=== PATIENT | female | born 1980 | race Caucasian/White ===

== ENCOUNTER 2020-03-12 15:27 | Outpatient (CLI) | payer BC, SELFPAY ==
--- NOTE | ~2020-03-12 | XR_ITS ---
XR lumbar spine min 4V DATE: 03/12/2020 16:25 INDICATION: Lower back pain for 10 years TECHNIQUE: AP, lateral, bilateral oblique views, coned lateral lumbosacral view COMPARISON: 12/21/2014 MRI lumbar spine FINDINGS: There is preservation of disc spaces at L1-2 and L2-3. There is mild loss of disc space height and mild degenerative spurring at L3-4. There is moderate loss of interspace height and mild spurring and mild retrolisthesis at L4-5. There is moderate loss of interspace height at L5-S1. No fracture or bone destruction is evident. No spondylolysis. The lumbar pedicles are intact. The sac roiliac joints appear normal. IMPRESSION: Mild to moderate degenerative disc disease at L3-4 through L5-S1; mild retrolisthesis at L4-5 Reviewed, dictated and finalized at location A. IMPRESSION: Mild to moderate degenerative disc disease at L3-4 through L5-S1; m ild retrolisthesis at L4-5
--- NOTE | ~2020-03-12 | XR_ITS ---
XR hip BI 2V w AP pelvis DATE: 03/12/2020 16:26 INDICATION: Bilateral hip pain, right greater than left TECHNIQUE: AP pelvis. AP and lateral views of each hip COMPARISON: None FINDINGS: No pelvic fracture or bone destruction is evident. The pubic symphysis and sacroiliac joint s are intact. No fracture or dislocation, avascular necrosis or bone destruction of either hip is evident. Hip join t spaces are symmetric and well preserved. Moderate degenerative disc disease is suggested at L4-5 and L5-S1. IMPRESSION: No significant abnormality of the pelvis or hips Reviewed, dictated and finalized at location A.
--- NOTE | ~2020-03-12 | XR_ITS ---
EXAMINATION: XR hand BI arthritis min 3V DATE: 03/12/2020 16:24 INDICATION: Unspecified osteoarthritis. TECHNIQUE: 4 views of right hand and 4 views of left hand on a total of 7 radiographs were obtained. COMPARISON: Right hand second digit radiographs 09/01/2008 FINDINGS: RIGHT HAND: There is mild flexion of fifth distal interphalangeal joint. There may be an old healed f racture deformity of dorsal base of fifth distal phalanx. No acute fracture. There is mild osteoarthr itis of triscaphe joint, first carpometacarpal joint, first, fourth, and fifth metacarpophalangeal lindsey ints, first interphalangeal joint, and third distal interphalangeal joint. LEFT HAND: Bone alignment is normal. No fracture. There is mild osteoarthritis of first metacarpophal angeal joint and second and third distal interphalangeal joints. IMPRESSION: 1. Mild polyarticular osteoarthritis. Reviewed, dictated and finalized at location B.
[2020-03-12 16:50] LABS: Basophils Absolute Auto 0.1 K/mm3 (0.0-0.1); Basophils Percent Auto 0.7 % (0.2-1.2); Eosinophils Absolute Auto 0.2 K/mm3 (0-0.3); Eosinophils Percent Auto 2.6 % (0-4.4); Hematocrit 37.8 % (37.0-47.0); Hemoglobin 12.3 g/dL (12.0-15.0); Immature Granulocyte Absolute 0.02 K/mm3 (0.00-0.031); Immature Granulocyte Percent A 0.3 % (0-0.5); Lymphocytes Absolute Auto 3.08 K/mm3 (0.9-3.2); Lymphocytes Percent Auto 42.1 % (18.3-44.2); Mean Corpuscular HGB Conc 32.5 g/dl (32-36); Mean Corpuscular Volume 86.1 fl (80-100); Mean Platelet Volume 9.6 fl (7.4-10.4); Monocytes Absolute Auto 0.4 K/mm3 (0.1-0.6); Monocytes Percent Auto 5.3 % (2.6-8.5); Neutrophils Absolute Auto 3.6 K/mm3 (1.3-6.7); Platelet Count Result 292 k/mm3 (150-375); Red Blood Count 4.39 M/mm3 (4.2-5.4); Red Cell Distribution Width 13.2 % (11.5-14.5); White Blood Count 7.3 K/mm3 (4.5-10.0)
[2020-03-12 17:11] LABS: Alanine Aminotransferase 41 U/L (4-35); Albumin Level 4.2 g/dL (3.5-5.1); Alkaline Phosphatase 58 U/L (38-126); Anion Gap 9 mmol/L (8-16); Aspartate Amino Transferase 38 U/L (14-36); Bilirubin,Total 0.3 mg/dL (0.2-1.3); Blood Urea Nitrogen 12 mg/dL (7-17); CRP 0.8 mg/dL (<1.0); Calcium 8.8 mg/dL (8.4-10.2); Carbon Dioxide 27 mmol/L (22-30); Chloride 103 mmol/L (98-107); Estimated Glomerular Filt Rate > 60; Glucose 86 mg/dL (65-105); Sodium 139 mmol/L (137-145); Uric Acid 3.6 mg/dL (2.5-7.5)
[2020-03-12 17:26] LABS: Erythrocyte Sedimentation Rate 17 mm/hr (0-20)
[2020-03-12 18:11] LABS: Hepatitis B Surface Antigen Negative (Negative)
[2020-03-12 18:28] LABS: Hepatitis B Surface Anti Res Negative; Hepatitis C Virus Antibody Negative (Negative)
[2020-03-16 16:42] LABS: Hepatitis B Core Ab Total Nonreactive (Nonreactive)
[2020-03-17 10:53] LABS: Anti Cyclic Citrullinated Pept <16 Units (<20)
[2020-03-17 14:21] LABS: Angiotensin Converting Enzyme 24 U/L (9-67)
[2020-03-18 20:10] LABS: ANCA Screen Negative (Negative); Myeloperoxidase Ab <1.0 AI (<1.0); Proteinase-3 Ab <1.0 AI (<1.0); S cerevisiae Ab (IgA) 6.1 U (<=20.0); S cerevisiae Ab (IgG) 9.8 U (<=20.0)
== END 2020-03-12 15:28 | disposition home or self-care (01) ==
PROVIDERS: PCP Family Medicine; Visit Provider Internal Medicine
DX: M19.041 Primary osteoarthritis, right hand (principal); M19.042 Primary osteoarthritis, left hand; Z11.59 Encounter for screening for other viral diseases; M51.36 Other intervertebral disc degeneration, lumbar region
CPT/HCPCS: 36415; 72110; 73130; 73521; 80053; 82164; 84550; 85025; 85652; 86021; 86140; 86200; 86671; 86704; 86706; 86803; 87340

== ENCOUNTER 2020-07-31 15:31 | Outpatient (CLI) | payer BC, SELFPAY ==
--- NOTE | ~2020-07-31 | MR_ITS ---
EXAMINATION: MR sacroiliac jts wo/w con DATE: 07/31/2020 17:32 INDICATION: Unspecified osteoarthritis, unspecified site. TECHNIQUE: Magnetic resonance imaging (MRI) of the sacroiliac joints was performed without and with 2 0 mL MultiHance intravenous contrast. Sequences included sagittal PD-weighted FS FSE, axial oblique T 1-weighted FSE, T1-weighted FS FSE, and T2-weighted FS FSE, coronal oblique T1-weighted FSE, T2-weigh singh FSE, and T2-weighted FS FSE, and postcontrast sagittal, axial oblique, coronal oblique T1-weighte d FS FSE. COMPARISON: Pelvis radiograph 03/12/2020 FINDINGS: Bone alignment is normal. No fracture. There is moderate lumbar spondylosis. There is moder ate osteoarthritis of the sacroiliac joints. IMPRESSION: 1. Moderate osteoarthritis of the sacroiliac joints. No evidence of inflammatory arthropathy. Reviewed, dictated and finalized at location A. [employer] IMPRESSION: 1. Moderate osteoarthritis of the sacroiliac joints. No evidence of inflammator y arthropathy.
[2020-07-31 16:23] LABS: Alanine Aminotransferase 21 U/L (4-35); Albumin Level 4.3 g/dL (3.5-5.1); Alkaline Phosphatase 69 U/L (38-126); Anion Gap 9 mmol/L (8-16); Aspartate Amino Transferase 24 U/L (14-36); Bilirubin,Total 0.2 mg/dL (0.2-1.3); Blood Urea Nitrogen 11 mg/dL (7-17); Calcium 8.8 mg/dL (8.4-10.2); Carbon Dioxide 27 mmol/L (22-30); Chloride 105 mmol/L (98-107); Estimated Glomerular Filt Rate > 60; Glucose 89 mg/dL (65-105); Potassium 4.1 mmol/L (3.4-5.0); Sodium 141 mmol/L (137-145)
[2020-07-31 16:41] LABS: Estimated Glomerular Filt Rate > 60
== END 2020-07-31 15:32 | disposition home or self-care (01) ==
LOC: ANHIMG 15:33
PROVIDERS: PCP Family Medicine; Visit Provider Internal Medicine
DX: M19.90 Unspecified osteoarthritis, unspecified site (principal)
CPT/HCPCS: 36415; 72197; 80053; A9577

== ENCOUNTER 2022-03-20 18:36 | Emergency (ER) | payer BC, SELFPAY ==
[2022-03-20 18:44] VITALS: BP 126/101; PULSE 76; RESP 16; TEMP 36.6; O2SAT 100
--- NOTE | 2022-03-20 18:52 | ED.FEMALEGU ---
HPI - Female Genitourinary General Chief complaint: Urogenital-Female Stated complaint: UTI Time Seen by Provider: 03/20/22 19:13 Source: patient and RN notes reviewed Mode of arrival: ambulatory Limitations: no limitations History of Present Illness HPI Narrative: 41-year-old female presents concern for 2-week history of strong smelling urine, dark-colored urine and suprapubic pressure and low back pain. She reports history of urinary tract infections and urine problems. She reports she tried increasing her water without relief. She denies fever, body aches, chills. Denies abdominal pain or vomiting. MD elicited complaint: UTI Related Data Home Medications Medication Instructions Recorded Confirmed bupropion HCl 150 mg tablet,12 hr 150 mg PO BID 08/07/20 03/20/22 sustained-release (Wellbutrin SR) clonazepam 0.5 mg tablet 0.5 mg PO BID 08/07/20 03/20/22 Allergies Allergy/AdvReac Type Severity Reaction Status Date / Time amoxicillin Allergy Unknown Unknown Verified 03/20/22 19:05 Penicillins Allergy Unknown [place] Verified 03/20/22 19:05 REACTION-CHILDHOOD Review of Systems Review of Systems: CONSTITUTIONAL: Denies malaise, chills, sweats, or fever. CARDIOVASCULAR: Denies chest pain, palpitations, or edema. RESPIRATORY: Denies cough or dyspnea. GASTROINTESTINAL: Denies abdominal pain, nausea, vomiting, diarrhea GENITOURINARY: Reports dysuria, strong smelling urine, suprapubic pressure. Denies frequency, urgency, flank pain or hematuria. SKIN: Denies rash or itching. MUSCULOSKELETAL: Denies back pain or myalgia. All systems reviewed & are unremarkable except as noted in HPI and below PMFSH Past Medical History Medical History Bilateral hand pain Inflammatory arthritis (~09/2019) Kidney stone Surgical History Surgical History H/O lithotripsy Hx of tubal ligation Family History Family History Mother Diabetes mellitus Heart disease Hypertension Arthritis Social History Social History Smoking status: Never smoker Second hand tobacco smoke exposure: No Alcohol intake: current Substance use: never Gender identity (if verbalized by the patient): Female Comments At time of signature, agree with nursing past medical, surgical, social and family history. There is no relevant family history pertinent to the presenting complaint Exam Narrative: GENERAL: Well-appearing, well-nourished, and in no acute distress. HEAD: Normocephalic. EYES: PERRLA, conjunctivae clear. NECK: Supple. No lymphadenopathy CHEST: Clear to auscultation. No respiratory distress. HEART: Regular rate and rhythm. ABDOMEN: Soft, nontender upon palpation, nondistended, normal active bowel sounds, no palpable or pulsatile masses, no guarding. No CVA tenderness SKIN: Warm, dry, no rash. NEURO: Alert and oriented x3. PSYCH: Normal mood and affect Course Course Emergency Course: Patient is aware of diagnosis, understands and agrees to treatment plan. Anticipatory guidance given. Patient agrees to follow-up as directed and is aware of reasons to seek care at the emergency department. Portions of this record may have been created with voice recognition software Level of Care: Express Care Visit Vital Signs Vital signs: Vital Signs Temperature 97.9 F 03/20/22 18:44 Pulse Rate 76 03/20/22 18:44 Respiratory Rate 16 03/20/22 18:44 Blood Pressure 126/101 H 03/20/22 18:44 Pulse Oximetry 100 03/20/22 18:44 Oxygen Delivery Room Air 03/20/22 18:44 Temperature 97.9 F 03/20/22 18:44 Pulse Rate 76 03/20/22 18:44 Respiratory Rate 16 03/20/22 18:44 Blood Pressure 126/101 H 03/20/22 18:44 Pulse Oximetry 100 03/20/22 18:44 Oxygen Delivery Room Air 03/20/22 18:44 Reviewed.
== END 2022-03-20 19:25 | disposition home or self-care (01) ==
PROVIDERS: Emergency Provider Nurse Practitioner; PCP Family Medicine
DX: R30.0 Dysuria (principal); R10.30 Lower abdominal pain, unspecified; R82.90 Unspecified abnormal findings in urine
CPT/HCPCS: 81003; 87086; 87088; 99213; G0463

== ENCOUNTER 2023-03-17 10:17 | Emergency (ER) | payer OTHER, SELFPAY ==
[2023-03-17 10:31] VITALS: BP 131/113; PULSE 77; RESP 16; TEMP 36.5; O2SAT 98
[2023-03-17 10:37] VITALS: BP 124/77
--- NOTE | 2023-03-17 11:00 | ED.GENADULT ---
HPI - General Adult General Chief complaint: Urogenital-Female Stated complaint: UTI Time Seen by Provider: 03/17/23 11:00 Source: patient, RN notes reviewed and old records reviewed Mode of arrival: ambulatory Limitations: no limitations History of Present Illness HPI narrative: 42-year-old female presents to the [facility] with complaints right flank pain for 8 days. Patient reports a history of kidney stones. States that she feels like she also has a UTI. States that whenever she passed a kidney stone she normally gets a urinary tract infection. Reports suprapubic pressure, discomfort. Denies nausea or vomiting. Onset (ago): day(s) (8) Related Data Home Medications Medication Instructions Recorded Confirmed citalopram 20 mg tablet mg 03/17/23 Allergies Allergy/AdvReac Type Severity Reaction Status Date / Time amoxicillin Allergy Unknown Unknown Verified 03/17/23 10:35 Penicillins Allergy Unknown [place] Verified 03/17/23 10:35 REACTION-CHILDHOOD Review of Systems Review of Systems: All systems reviewed & are unremarkable except as noted in HPI and below Constitutional: Constitutional: Reports no additional constitutional complaints Eyes: Eyes: Reports no additional eye complaints ENT: Reports system reviewed and no additional complaints, except as documented Cardiovascular: Cardiovascular: Reports no additional cardiovascular complaints, Denies chest pain and Denies dyspnea Respiratory: Respiratory: Reports no additional respiratory complaints, Denies chest congestion, Denies cough and Denies dyspnea Gastrointestinal: Gastrointestinal: Reports no additional gastrointestinal complaints, Denies abdominal pain, Denies nausea and Denies vomiting Genitourinary: Genitourinary: Reports as per HPI Musculoskeletal: Musculoskeletal: Reports no additional musculoskeletal complaints Integumentary/Breasts: Skin/Breast: Reports system reviewed and no additional complaints, except as docu Neurologic: Reports system reviewed and no additional complaints, except as documented Psychiatric: Psychiatric: Reports no additional psychiatric complaints Allergic/Immunologic: Allergic/Immunologic: Reports no additional allergic/immunologic complaints [facility] Past Medical History Medical History Bilateral hand pain Inflammatory arthritis (~09/2019) Kidney stone Surgical History Surgical History H/O lithotripsy Hx of tubal ligation Family History Family History Mother Diabetes mellitus Heart disease Hypertension Arthritis Social History Social History Smoking status: Never smoker Second hand tobacco smoke exposure: No Alcohol intake: current Substance use: never Gender identity (if verbalized by the patient): Female Comments At the time of my signature, I reviewed and agree with the nursing past medical, surgical, social, and family history. There is no relevant family history pertinent to the patient complaint. Exam Const: General: cooperative, healthy appearing, comfortable, no acute distress, well developed, alert and well nourished Nutritional Appearance: well nourished and obese Orientation/consciousness: patient oriented x3 Limitations: no limitations HENMT: Head: normal to inspection Ears: hearing grossly normal bilaterally and external ears normal Face/Nose/Sinus: Normal external nose present, Normal nares present, Normal nasal mucous membranes and turbinates present, normal facial exam and face symmetric Face and sinus: normal facial exam and face symmetric Mouth: Yes Normal oral and palatal mucosa present, Yes lip normal and Yes moist mucous membranes Eyes: General: appearance normal, both eyes and all related structures Alignment and Position: alignment normal
== END 2023-03-17 11:17 | disposition home or self-care (01) ==
PROVIDERS: Emergency Provider Nurse Practitioner; PCP Family Medicine
DX: N30.01 Acute cystitis with hematuria (principal)
CPT/HCPCS: 81003; 87077; 87086; 87088; 99213; G0463